=== PATIENT | female | born 1975 | race Hispanic/Latino ===

== ENCOUNTER 2016-10-11 07:40 | Emergency (ER) | payer OTHER ==
[~2016-10-11] VITALS: Ht 154.9 cm; Wt 80.9 kg
[~2016-10-11 07:40] MED LIST: NOMED
[2016-10-11 07:44] VITALS: BP 113/72; PULSE 78; RESP 18; O2SAT 98
--- NOTE | 2016-10-11 07:50 | ED.REPORT ---
HPI-Headache Date of Service Oct 11, 2016 ED Provider: Dr. Guardado Pt is a 41 y/o female w/ a hx of chronic pain presenting to the ED c/o diffuse throbbing headache onset 3 days ago. She reports associated myalgias, fever, photophobia, cough, neck pain. She went to Urgent Care and was tested for the Flu which was negative. She was thought to have a sinus infection at that point and given antibiotics and cough medication. She does not believe she has a sinus infection. Her had a similar illness recently. She returns today because of a persistent headache. Nothing receives or exacerbates her headache. She denies sore throat, dysuria, sensitivity to sound, facial pressure, facial tenderness, vision changes, purulent nasal discharge, N/V/D. She did not receive seasonal Influenza vaccine. She denies out of country travel. Nursing Notes Stated Complaint: MIGRAINE Chief Complaint: Headache Nursing Notes Reviewed: Yes Allergies: Coded Allergies: Penicillins (Verified Allergy, Severe, RASH, 10/11/16) Scheduled PRN Ibuprofen (Ibuprofen) 600 Mg Tablet 600 MG PO QID PRN PRN For Pain Ondansetron ODT (Zofran ODT) 4 Mg Tablet 4 MG PO Q4H PRN PRN For Nausea Miscellaneous Medications No Historical Medication (No Historical Medication) Ea General Time Seen by MD: 08:01 Chief Complaint Headache Hx Obtained From: Patient Arrived By: Walk-in Sudden in Onset?: No Onset Occurred: 3 days ago Symptom Duration: Since onset Location: : Generalized Quality: Painful Severity: Current: Mild Severity: Maximum: Moderate Past Medical History Past Medical History Chronic neck and shoulder pain Hx endometriosis s/p laparotomy Past Surgical History Hysterectomy Laparotomy for endometriosis Smoking History Never Smoker Social History Alcohol Use: Denies alcohol use Drug Use: Denies drug use Ambulatory Status Independent Review of Systems Review of Systems Note: Denies facial pain Constitutional: Reports: Chills, Fatigue, Fever, Weakness - generalized Eyes: Reports: Photophobia Ears / Nose / Throat: Denies: Nasal congestion, Sore throat GI: Denies: Abdominal pain, Diarrhea, Nausea, Vomiting Musculoskeletal: Reports: Neck pain Neurologic: Reports: Headache, Denies: Focal weakness, Numbness, Vision change Complete sys rev & neg: except as marked. Physical Exam Initial Vital Signs Vital Signs (First) Date Time Temp Pulse Resp B/P Pulse Ox O2 Delivery O2 Flow Rate FiO2 10/11/16 07:44 38.1 78 18 113/72 98 Room Air Initial VS: Reviewed, Vital signs abnormal Respiratory: Breath sounds normal, Clear to auscultation, No respiratory distress Cardiovascular: Regular rate & rhythm, Heart sounds normal, Intact distal pulses Abdomen / GI: Soft, Non-tender, No guarding, No rebound, No distention Extremities: Vascular intact, Neuro intact, No swelling, No tenderness Skin: Warm, Dry, No cyanosis Psychiatric: Mood/affect normal, Behavior normal, Normal thought content General/Constitutional: Awake, Alert, No acute distress, Cooperative, Not toxic appearing Head / Eyes: Atraumatic, Normocephalic, PERRL, EOMI Photophobia Neck: Atraumatic, Supple, No meningismus, Full range of motion, No midline vertebral tend Diffuse tenderness about the trapezius muscles Neurologic: Oriented X3, Speech NL, No motor deficits, No sensory deficits, CN II - XII intact ENT: Atraumatic, Airway patent, Mucous membranes moist, Pharynx NL, No peritonsillar abscess, No pooling of secretions Re-Eval/Medical Decision Med Decision/Clinical Course In summary, the patient is a generally healthy 41-year-old female, who presents with headache. He has had recent flulike illness and was started a couple of days ago on Bactrim for possible sinusitis. Our primary and secondary assessment reveals an awake, alert patient in no acute distress. Hemodynamically stable though initially febrile. Exam reveals normal neurologic exam. Meds given: 1 L saline, 30 mg IV Toradol, 10 mg Reglan, 25 mg Benadryl Labs: Influenza negative Patient was reevaluated thereafter reported significant symptomatic improvement. Repeat examination revealed that she is neurologically intact with supple range of motion of the neck. 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 There may be a component of migraine or tension type headache. Considered other causes of headache to include: Subdural hemorrhage, subarachnoid hemorrhage, [place] tumor, meningitis, encephalitis, venous sinus thrombosis, dissection, temporal arteritis, intracranial hypertension (psuedotumor cerebri), sinusitis or cervicalgia, although these are less likely based on the history, exam findings as noted above. Based on this, I feel that imaging would be low yield and is not warranted at this time. Her presentation and history is not suggestive of meningitis. She is without any meningeal findings and although she is febrile illnesses in the setting of diffuse symptoms suggestive of viral illness in the setting of exposure to persons with similar symptoms. I do not feel that LP is indicated. Discussed the risks and benefits of this with the patient who is in agreement. Also discussed with the patient at length that if symptoms change, worsen, or persist, should return to the ER for reevaluation. They understand and agree with the plan. Given the patient's workup, feel they are safe for discharge. Re-Evaluation/Progress : Time of Eval: 09:13 Re-Evaluation/Progress Note: Pt rechecked. She is feeling slightly improved. Informed pt of plan for treatment. Pt understands and agrees with plan for treatment. F/U and RTER warnings given. All questions addressed. Counseled Regarding: Diagnosis, Lab results, Need for follow-up, When/why to return to ED Discharge & Departure Impression: Primary Impression: Viral illness Additional Impressions: Headache Headache type: unspecified Headache chronicity pattern: acute headache Intractability: not intractable Qualified Code: R51 - Headache Fever Fever type: unspecified Qualified Code: R50.9 - Fever, unspecified Myalgia Disposition: Home Discharge Condition All VS Reviewed: Yes Condition: Stable Additional Instructions: Thank you for seeking care at emergency room. It is difficult for us to make definitive diagnoses in the ED but we believe that you are experiencing a viral illness causing headache, aches and pains. Our primary goal today in the ED was to evaluate you for any life-threatening conditions. Your evaluation was reassuring. You will be discharged with a prescription for nausea medication, please drink lots of fluids and take ibuprofen as needed for pain. You should follow-up with your primary doctor in the next week. You should return to the ED immediately if you develop worsening/changing headache, neck pain, fevers, vomiting, cough, shortness of breath, chest pain, lightheadedness, weakness or any other concerning signs or symptoms. Thank you for letting us partake in your care today. Referrals: Sammy Siddiqui MD (PCP) Scribe Attestation Portions of this note were transcribed by Juan M Brantley. I, Dr. Guardado personally performed the history, physical exam and medical decision-making; I reviewed and confirmed the accuracy of the information in the transcribed note. Signed by Juan M Brantley - [place] - 10/11/16807 copies to: Sammy Siddiqui MD,Ellis Blackburn MD Oct 11, 2016 07:50 JUAN M BRANTLEY Oct 11, 2016 08:10
[2016-10-11] MEDS ORDERED: 0.9% Sodium Chloride 1,000 ML IV ONE (07:51)
[2016-10-11] MEDS ORDERED: MetoCLOpramide 5 mg/mL 2 mL Inj IVPUSH ONE (07:55)
[2016-10-11] MEDS ORDERED: ONDA4TAB9 PO (09:15)
[2016-10-11] MEDS ORDERED: IBUP-1827 PO (09:15)
[2016-10-11 09:29] VITALS: BP 97/62; PULSE 62; O2SAT 96
[2016-10-11 10:12] VITALS: BP 100/68; PULSE 62; RESP 18; O2SAT 96
== END 2016-10-11 10:10 | disposition home or self-care (01) ==
LOC: SED 07:40
DX: B34.9 Viral infection, unspecified (principal); R51 Headache; R50.9 Fever, unspecified; M79.1 Myalgia; Z88.0 Allergy status to penicillin
CPT/HCPCS: 87804; 96361; 96374; 96375; 99284; J1200; J2765; J7030